=== PATIENT | male | born 1960 | race African-American/Black ===

== ENCOUNTER 2024-01-01 13:04 | Outpatient (AMB) | payer MEDICAID, SELFPAY ==
--- NOTE | 2024-01-01 13:05 | MHC.OFFVIS ---
Vital Signs 01/01/24 13:13 Height 5 ft 11.5 in Weight 185 lb 10.067 oz BMI 25.5 BP 138/92 H Blood Pressure Location Rt brachial Position Sitting Pulse 54 Pulse Source Pulse Oximeter Pulse Oximetry (%) 96 Oxygen Delivery Method Room Air Intake Visit Reasons: PSA Intake Note: New patient, referred by Roxana Inman NP from [facility]. Referred for PsA. c/o recurrent rolanda leg cramps making it difficult to sleep, rolanda leg pain from the knee radiating down to the feet x 6-8 months Currently on Skyrizi. Sees [facility]. Assistant Account Manager Required: No Accompanied by: Self / Same As Patient Allergies hydrochlorothiazide [HYDROCHLOROTHIAZIDE] Allergy (Unknown, Unverified 05/31/20 15:43) UNKNOWN HPI Comments Details: Mr. Brock 63-year-old male presents for evaluation of swelling to lower extremity. The patient is currently be treated by Derm for psoriasis on Skyrizi. --swelling started 4 months ago --on Skyrizi about 4 to 6 months, was doing topicals before. PsO started 3 years ago. No family hx --had mild ankle pain before - thinks normal wear and tear from jogging and karate. --lidocaine patch applied to ankle and peeled off skin because he left it on overnight --walk causes pain in ankles and top of ankles --flat feet with collapsed arch and bony prominence to medial aspect of feet, --no history of gout --denies swelling, pain and warmth to other joints --denies diarrhea, blood in urine or stool --denies uveiitis --Stopped Spironalactone about 2 week ago [facility] Medical History (Updated 01/28/24 @ 23:12 by JAVIER Kessler-GUERRERO) Psoriasis Bilateral ankle joint pain Bilateral foot pain Swelling of both lower extremities Surgical History (Updated 01/01/24 @ 13:18 by KARIS Gottlieb) H/O hand surgery H/O rotator cuff surgery Social History (Updated 01/01/24 @ 13:37 by KARIS Gottlieb) Alcohol intake: former Patient Tobacco Use Status: Current everyday Tobacco user Tobacco use type: Cigarette Cigarettes Per Day: 10 Substance Use Type: Heroin Current occupational status: unemployed Review of Systems Const All systems reviewed & are unremarkable except as noted in HPI and below Physical Exam Vital Signs: Last Vital Signs Pulse 54 01/01/24 13:13 BP 138/92 H 01/01/24 13:13 Pulse Ox 96 01/01/24 13:13 Oxygen Delivery Method Room Air 01/01/24 13:13 BMI result Body Mass Index 25.5 APPEARANCE: Patient in no acute distress EYES no redness, normal EARS:? External ear normal. NOSE/SINUS:? Airflow through both nares, no nasal discharge, no bleeding THROAT:? Oral mucosa moist, no ulcerations NECK:? No thyromegaly or masses, no adenopathy, trachea midline. HEART:? Regular rhythm, S1-S2 heard, no murmurs, rubs or gallops. LUNG:? Clear to percussion and auscultation EXTREMITIES:? No edema, no calf tenderness, normal peripheral pulses. NEURO:? Oriented and alert x3.? No focal weakness.? Reflexes symmetric.? Gait normal. SKIN:? There are no skin lesions evident. No objective signs of Raynaud's phenomenon. JOINT EXAM: Cervical Spine:.? Full range of motion without pain; no tenderness. Thoracic Spine:.? No scoliosis.? No tenderness on palpation. Lumbar Spine:.? Alignment normal.? Full range of motion without pain, no tenderness. Chest Wall:.? No tenderness, swelling, increased warmth or erythema. Hands:.? Normal pain-free range of motion without tenderness, swelling, increased warmth or erythema. Able to make a full fist and has a good general surgeon strength. Wrists:.? Normal pain-free range of motion without tenderness, swelling, increased warmth or erythema. Elbows:. Normal pain-free range of motion without tenderness, swelling, increased warmth or erythema. Shoulders:.?? Full range of motion without pain. No tenderness, weakness, swelling, increased warmth or erythema. Hips:.? Full range of motion without pain. Hip bursa:.? No tenderness. Knees:.?? Normal pain-free range of motion without tenderness, swelling, increased warmth or erythema.? There is no effusion or crepitation Ankles:.? Normal range of motion with tenderness, mild swelling, but no increased warmth or erythema. Feet:.? Normal pain-free range of motion without tenderness, swelling, increased warmth or erythema. Tender points:? No tenderness to digital palpation at the occiput, trapezius, second rib, lateral epicondyle, knees, greater trochanter and gluteal area bilaterally. ? Assessment & Plan Assessment & Plan (1) Bilateral foot pain: Code(s): M79.671 - Pain in right foot; M79.672 - Pain in left foot Category: Medical (2) Bilateral ankle joint pain: Code(s): M25.571 - Pain in right ankle and joints of right foot; M25.572 - Pain in left ankle and joints of left foot Category: Medical (3) Psoriasis: Code(s): L40.9 - Psoriasis, unspecified Category: Medical Plan Patient on skirizi for PsO having joint pains to the ankle desiring to know if this is the onset of PsA. I do no think this is PsA. His ankle and foot pain is primarily from mechanical changes, pes planus collapsed arch and ankle pronation. The patient would benefit from Supportive shoes for ankle and arches. The patient denies swelling and pain other joints. I will obtain imaging to assess the ankle for the degree of OA and any signs of inflammatory arthritis changes such as erosions. I also discussed with patient that Skyrizi now has indication for PsA so if the ankle symptoms were secondary to PsA then that implies skyrizi would not be adequate. And as such any medication that would be given for the ankles would be limited to MTX, LEF and other non-bio DMARDS or change Skyrizi. The patient is satisfied with skyrizi being therapeutic for his PsO. I will obtain Rheum labs for further evaluation of systemic inflammation I spent 35 minutes reviewing history, evaluating patient and documenting Orders: Orders ELGIN Reflex Titer and Pattern 01/01/24 - Other specified soft tissue disorders ANCA Vasculitides 01/01/24 - Other specified soft tissue disorders Anti-Centromere B Antibodies 01/01/24 - Other specified soft tissue disorders Anti DNA DS Antibody 01/01/24 - Other specified soft tissue disorders Comprehensive Met. Panel 01/01/24 - Other specified soft tissue disorders C Reactive Protein 01/01/24 - Other specified soft tissue disorders Creatine Kinase Total 01/01/24 - Other specified soft tissue disorders Immunofixation Pnl, Serum 01/01/24. - Other specified soft tissue disorders Immunoglobulins,IgG IgA IgM 01/01/24. - Other specified soft tissue disorders Protein Electrophoresis, Serum 01/01/24. - Other specified soft tissue disorders Sjogren's Antibodies 01/01/24. - Other specified soft tissue disorders UA w Microscopic 01/01/24. - Other specified soft tissue disorders XR foot LT min 3V 01/01/24 M79.671 - Pain in right foot, M79.672 - Pain in left foot, M25.571 - Pain in right ankle and joints of right foot, M25.572 - Pain in left ankle and joints of left foot XR foot RT min 3V 01/01/24 M79.671 - Pain in right foot, M79.672 - Pain in left foot, M25.571 - Pain in right ankle and joints of right foot, M25.572 - Pain in left ankle and joints of left foot Erythrocyte Sedimentation Rate 01/01/2479. - Other specified soft tissue disorders Anti Extractable Nuclear Ag 01/01/24. - Other specified soft tissue disorders Complement C3 01/01/24. - Other specified soft tissue disorders Complement C4 01/01/24. - Other specified soft tissue disorders Complete Blood Count Auto Diff 01/01/24 - Other specified soft tissue disorders Scleroderma 70 Antibody 01/01/24. - Other specified soft tissue disorders Uric Acid 01/01/24. - Other specified soft tissue disorders Aldolase 01/01/24. - Other specified soft tissue disorders Coding Level of Care Code New Pt Level 4 (61323) Diagnoses Bilateral foot pain M79.671; M79.672 Bilateral ankle joint pain M25.571; M25.572 Psoriasis L40.9
[2024-01-01 13:13] VITALS: BP 138/92; PULSE 54; O2SAT 96; BMI 25.5
== END 2024-01-01 14:00 | disposition home or self-care (01) ==
PROVIDERS: Visit Provider Nurse Practitioner Family
DX: M79.671 Pain in right foot (principal); M79.672 Pain in left foot; M25.571 Pain in right ankle and joints of right foot; M25.572 Pain in left ankle and joints of left foot; L40.9 Psoriasis, unspecified
CPT/HCPCS: 99204

== ENCOUNTER → 2024-01-01 13:04 | Outpatient (BNVA) | payer MEDICAID, SELFPAY | PROVIDERS: Visit Provider Nurse Practitioner Family | DX: M79.671 Pain in right foot (principal); M79.672 Pain in left foot; M25.571 Pain in right ankle and joints of right foot; M25.572 Pain in left ankle and joints of left foot; L40.9 Psoriasis, unspecified | CPT/HCPCS: 99212 ==

== ENCOUNTER 2024-08-27 17:52 | Emergency (ER) | payer OTHER, SELFPAY ==
[2024-08-27 18:00] VITALS: BP 177/61; BP 190/80; PULSE 59; PULSE 80; RESP 18; TEMP 36.6; O2SAT 97; O2SAT 98; BMI 25.8
[2024-08-27 18:02] VITALS: RESP 16
--- NOTE | 2024-08-27 18:04 | PC.NURSE ---
Randell comes in today reporting suicidal ideation with a plan to jump off bridge. he reports that he has been having increasing life stressors and he has been without his seroquel for some time. He reports that he has minimal psychiatric history. Patient is calm and cooperative, help seeking, offers no complaints to this RN. Patient aware of plan of care for medical clearance and CARE team eval Of note: patient [facility] meth[facility] at [facility] in [place], this RN attempted to verify dosage, after hours line answered but were unable to verify dosage. They advised this RN to call back on Thursday during business hours
--- NOTE | 2024-08-27 18:18 | PC.NURSE ---
RE; med rec this RN verified medications via medical record and patient recall
--- NOTE | 2024-08-27 18:25 | PC.NURSE ---
lead man over all dies in pattern shop completed by Will, Security. Security searched patient's head covering and told patient that it was okay for him to keep it. Patient reports that he is Rastafari and wears it for pentecostal reasons. Clinical Coordinator Anel aware as well
[2024-08-27 18:48] LABS: MANUAL DIFF FLAG NO
--- NOTE | 2024-08-27 19:22 | ED_ITS ---
HPI - Psych General Chief Complaint: Psychiatric Symptoms Stated Complaint: si w/ plan Time Seen by Provider: 08/27/24 19:15 Source: patient Mode of arrival: ambulatory Limitations: no limitations History of Present Illness ED Provider: DR. Garibay HPI Narrative: 64-year-old male homeless ana came in for evaluation of depression with SI with a plan of jumping of a bridge, never attempted suicide in the past, never required mental health hospitalization. Patient otherwise has no other symptoms. Related Data Home Medications ?Medication ?Instructions ?Recorded ?Confirmed amlodipine 10 mg-olmesartan 40 mg 1 tab PO DAILY 01/01/24 08/27/24 tablet carvedilol 3.125 mg tablet 3.125 mg PO BID 01/01/24 08/27/24 ferrous sulfate 325 mg (65 mg 325 mg PO DAILY 08/27/24 08/27/24 iron) tablet (FeroSul) gabapentin 400 mg capsule 400 mg PO TID 08/27/24 08/27/24 nicotine (polacrilex) 4 mg gum 4 mg PO Q2H 08/27/24 08/27/24 spironolactone 25 mg tablet 25 mg PO DAILY 08/27/24 08/27/24 Allergies Allergy/AdvReac Type Severity Reaction Status Date / Time hydrochlorothiazide Allergy Unknown UNKNOWN Verified 08/27/24 18:02 [HYDROCHLOROTHIAZIDE] Review of Systems 2 Review of Systems: All other systems are reviewed and are negative Constitutional: Reports as per HPI and Reports no additional constitutional complaints Eyes: Reports as per HPI and Reports no additional eye complaints Reports system reviewed and no additional complaints, except as documented Cardiovascular: Reports as per HPI and Reports no additional cardiovascular complaints Respiratory: Reports as per HPI and Reports no additional respiratory complaints Gastrointestinal: Reports as per HPI and Reports no additional gastrointestinal complaints Genitourinary: Reports no additional female genitourinary complaints Musculoskeletal: Reports no additional musculoskeletal complaints Skin/Breast: Reports system reviewed and no additional complaints, except as docu Psychiatric: Reports no additional psychiatric complaints Endocrine: Reports no additional endocrine complaints Hematologic/Lymphatic: Reports no additional hematologic/lymphatic complaints Allergic/Immunologic: Reports no additional allergic/immunologic complaints Reports system reviewed and no additional complaints, except as documented and Reports Abnormal speech present [facility] Past Medical History Medical History Psoriasis Bilateral ankle joint pain Bilateral foot pain Swelling of both lower extremities Surgical History H/O hand surgery H/O rotator cuff surgery Social History Social History Alcohol intake: current Alcohol intake frequency: does not drink Patient Tobacco Use Status: Current everyday Tobacco user Tobacco use type: Cigarette Cigarettes Per Day: 10 Smoked in Last 30 Days: Yes Use of substances other than those prescribed or required for medical reasons: No Substance Use Type: Heroin Advance Directives: No Advance Directives Information Provided: No Current occupational status: unemployed Physical Exam 2 Vital Signs: Vital Signs: Last Vital Signs Temp 97.8 F 08/27/24 18:00 Pulse 59 08/27/24 18:00 Resp 16 08/27/24 18:02 BP 177/61 H 08/27/24 18:00 Pulse Ox 97 08/27/24 18:00 O2 Del Method Room Air 08/27/24 18:00 BMI result Body Mass Index 25.8 Vital signs have been reviewed and appear to be correct. Blood pressure elevated. Heart rate normal. Respiratory rate normal. Temperature normal. Oxygen saturation normal. Appearance: Alert. Oriented X3. No acute distress. Head: Normal external exam. Normocephalic. Atraumatic. No Griffith signs noted. No raccoon eyes noted Eyes: PERRLA. EOMI. Conjunctiva and sclera normal. Eyelids normal. ENT: TM's Normal. Pharynx normal. Uvula midline. Moist mucous membranes. No trismus noted. No drooling noted. No muffled voice noted. Neck: Normal inspection. Neck supple. FROM. No adenopathy. Thyroid Normal. No meningeal signs. No neck mass noted. CVS: Normal heart rate and rhythm. Heart sound normal. No murmurs noted. Pulses normal throughout. Respiratory: No respiratory distress. Painless inspiration. Breath sounds normal. No wheezes/rales/rhonchi noted. Chest nontender. No accessory muscle usage noted or decreased air movement noted. Abdomen: Soft and nontender. Bowel sounds normal in all 4 quadrants. No distention noted. No organomegaly noted. No visible injury noted. Back: No CVA tenderness. Full range of motion noted. Skin: Skin warm and dry. Normal skin color. Normal skin turgor. No rashes/lesions/lacerations noted. Extremities: No lower extremity edema. Extremities exhibit normal range of motion. Extremities nontender. Neuro: Oriented X 3. Cranial nerve exam: II-XII are grossly intact No motor deficit. No sensory deficit. Reflexes normal. Patient Orientation: Person, Place, Time and Situation, okay hygiene and grooming. Fair eye contact, attentive, no tics or tremors. Level of Consciousness: Awake, Appropriate and Alert Patient Behavior: Appropriate, Guarded, Cooperative and Anxious Mood Description: Constricted, Blunted and Apprehensive Affect Description: Constricted, Blunted and Apprehensive Patient Cognition Impaired: No Ability to Follow Directions: Excellent Speech Pattern: Clear, Appropriate and Spontaneous Speech, nonpressured, spontaneous with regular rate and rhythm, normal volume and prosody. No dysarthria. Memory Description: Intact, Immediate Intact and Short Term Intact Hallucinations: None Delusions: Not Present Thought Process: Intact Thought Content: denies Homicidal Ideation, + SI Depressive Symptoms: Not present. Judgement and Insight: Limited but adequate. Course Reevaluation(s) Reevaluation #1: a 64-year-old male came in for depression and SI, patient is medically cleared will start physician observation and obtain care team evaluation. Time: 21:00 Medical Decision Making Differential Diagnosis Differential Diagnoses: The differential diagnosis associated with the presentation includes ( Depression, SI, HI, hallucination, electrolyte derangement, severe anemia, medical clearance.) Admission/Observation Consideration of admission/observation: Escalation of care including admission/observation considered Lab Data MDM Lab Attestation statement: I reviewed the patient's lab results. 08/27/24 18:43 08/27/24 18:43 Labs: Lab Results 08/27/24 Range/Units 18:43 WBC 3.0 L (4.8-10.8) X10*3/uL RBC 3.82 L (4.60-5.80) X10*6/uL Hgb 10.6 L (14.0-18.0) g/dl Hct 32.1 L (42.0-52.0) % MCV 84.0 (80.0-98.0) fL MCH 27.7 (27.0-33.0) pg MCHC 33.0 (31.0-36.0) g/dl RDW 15.4 (11.0-16.0) % Plt Count 143 L (160-400) X10*3/uL MPV 9.6 (9.4-12.4) fL Immature Gran % (Auto) 0.3 (0.0-0.4) % Neut % (Auto) 37.3 L (45-73) % Lymph % (Auto) 41.2 H (20-40) % [place] % (Auto) 11.1 H (2-11) % Eos % (Auto) 9.1 H (0-4) % Baso % (Auto) 1.0 (0-2) % Lymph # (Auto) 1.2 (1.2-4.9) X10*3/uL [place] # (Auto) 0.3 (0.1-1.2) X10*3/uL Eos # (Auto) 0.3 (0.0-0.4) X10*3/uL Baso # (Auto) 0.0 (0.0-0.2) X10*3/uL Abs Immat Gran (auto) 0.01 (0.00-0.03) X10*3/uL Absolute Neuts (auto) 1.1 L (2.0-8.3) x10*3/uL Absolute Nucleated RBC 0.000 (0.0-0.012) X10*3/uL Nucleated RBC % (auto) 0.0 (0.0-0.2) /100WBC Sodium 141 (135-145) mmol/L Potassium 4.9 (3.3-5.1) mmol/L Chloride 108 (96-108) mmol/L Carbon Dioxide 26 (22-29) mmol/L Anion Gap 12 (12-20) BUN 36 H (9-16) mg/dL Creatinine 1.97 H (0.5-1.4) mg/dL Estim Creat Clear Calc 39.8 Estimated GFR 34 Random Glucose 96 (60-115) mg/dL Calcium 9.6 (8.4-10.2) mg/dL Total Bilirubin 0.4 (0.0-1.0) mg/dL AST 42 H (5-37) U/L ALT 25 (0-40) U/L Alkaline Phosphatase 88 (39-117) U/L Total Protein 8.4 H (6.5-8.0) g/dL Albumin 3.7 (3.5-5.0) g/dL Ethyl Alcohol < 10 mg/dL Discharge Plan Discharge Clinical Impression: Depression, Suicidal ideation Patient Disposition: Still a Patient Prescriptions: No Action gabapentin 400 mg capsule 400 mg PO TID spironolactone 25 mg tablet 25 mg PO DAILY nicotine (polacrilex) 4 mg gum 4 mg PO Q2H ferrous sulfate [FeroSul] 325 mg (65 mg iron) tablet 325 mg PO DAILY amlodipine-olmesartan 10-40 mg tablet 1 tab PO DAILY carvedilol 3.125 mg tablet 3.125 mg PO BID Interventions: [place]-Suicide Risk Severity Scale Last Done: 08/27/24 18:03 Print Language: Nepali
[2024-08-27 19:24] LABS: Eosinophils Absolute Auto 0.3 X10*3/uL (0.0-0.4); Eosinophils Percent Auto 9.1 % (0-4); Hematocrit 32.1 % (42.0-52.0); Hemoglobin 10.6 g/dl (14.0-18.0); Imm Gran Abs Auto 0.01 X10*3/uL (0.00-0.03); Imm Gran Pct Auto 0.3 % (0.0-0.4); Lymphocytes Absolute Auto 1.2 X10*3/uL (1.2-4.9); Lymphocytes Percent Auto 41.2 % (20-40); Mean Corpuscular Hemoglobin 27.7 pg (27.0-33.0); Mean Platelet Volume 9.6 fL (9.4-12.4); Monocytes Absolute Auto 0.3 X10*3/uL (0.1-1.2); Monocytes Percent Auto 11.1 % (2-11); Neutrophils Absolute Auto 1.1 x10*3/uL (2.0-8.3); Neutrophils Percent Auto 37.3 % (45-73); Platelet Count 143 X10*3/uL (160-400); Red Blood Count 3.82 X10*6/uL (4.60-5.80); Red Cell Distribution Width 15.4 % (11.0-16.0)
[2024-08-27 19:25] LABS: Alanine Aminotransferase 25 U/L (0-40); Albumin Level 3.7 g/dL (3.5-5.0); Alkaline Phosphatase 88 U/L (39-117); Anion Gap 12 (12-20); Aspartate Amino Transferase 42 U/L (5-37); Bilirubin Total 0.4 mg/dL (0.0-1.0); Blood Urea Nitrogen 36 mg/dL (9-16); Calcium 9.6 mg/dL (8.4-10.2); Carbon Dioxide 26 mmol/L (22-29); Chloride 108 mmol/L (96-108); Creatinine Clr Calc Pharmacy 39.8; Estimated Glomerular Filt Rate 34; Ethanol < 10 mg/dL; Glucose Random 96 mg/dL (60-115); Potassium 4.9 mmol/L (3.3-5.1); Sodium 141 mmol/L (135-145); Total Protein 8.4 g/dL (6.5-8.0)
--- NOTE | 2024-08-27 19:47 | MHC.CARE ---
Attempted to contact for collateral information: Thelma Delmy (Sister; [phone]) and Acacia Brock (Parent; [phone]) however both numbers are not in-service.
--- NOTE | 2024-08-27 20:00 | PC.NURSE ---
Addendum entered by Verna Pham 08/28/24 00:07: PT HR 50, notified provider as carvedilol due. Provider ordered TW to administer as scheduled but to monitor. Original Note: PT
--- NOTE | 2024-08-27 20:12 | MHC.CARE ---
CARE team attempted to evaluate Pt, however repeatedly expressed, I'm too tired to talk to you right now.
[2024-08-27 21:58] VITALS: BP 187/82; PULSE 50; RESP 16; TEMP 36.3; O2SAT 98
[2024-08-27 22:31] VITALS: BP 187/82; PULSE 50
[2024-08-27] MEDS: Gabapentin 400 MG CAPSULE PO (22:31)
[2024-08-27] MEDS: carvediloL 3.125 MG TABLET PO (22:31)
[2024-08-28 00:13] VITALS: PULSE 58; RESP 16; O2SAT 98
[2024-08-28 00:53] LABS: Appearance Urine Clear; Color Urine Yellow; Glucose Urine UA Negative (Negative); Leukocyte Esterase Urine Negative (Negative); Nitrite Urine Negative (Negative); PH 5.5 (5.0-9.0); Specific Gravity - Urine 1.015 (1.005-1.025); UMIC TRIGGER UACC YES; Urine Blood Small (1+) (Negative); Urine Ketones Negative (Negative); Urine Protein 30 (1+) mg/dL (Neg-Trace)
[2024-08-28 00:57] LABS: Amphetamine Screen Urine Not Detected (Not Detect); Barbiturates, Urine Not Detected (Not Detect); Benzodiazepines Screen Urine Not Detected (Not Detect); Buprenorphine Scr Not Detected (Not Detect); Cannabinoid Screen Urine Not Detected (Not Detect); Cocaine Screen Urine POSITIVE (Not Detect); Fentanyl, urine POSITIVE (Not Detect); Methadone Screen, Urine Positive (Not Detect); Opiate Screen Urine POSITIVE (Not Detect); Oxycodone Screen Urine Not Detected (Not Detect); Phencyclidine Screen Urine Not Detected (Not Detect)
[2024-08-28 01:06] LABS: Bacteria Urine None Seen (None Seen); Hyaline Casts Urine 0-2 /LPF (0-2); RBC Urine 0-2 /HPF (0-2); Squamous Epithelial Cell Urine 0-2 /HPF (0-2); WBC Urine 0-5 /HPF (0-5)
--- NOTE | 2024-08-28 07:29 | PC.NURSE ---
Assumed care of patient at 0645, patient appears to be in no apparent distress this am, sleeping, respirations even and unlabored. Continue plan of care for CARE team eval today
[2024-08-28 07:30] VITALS: BP 171/60; PULSE 56; RESP 16; TEMP 36.4; O2SAT 97
[2024-08-28 08:18] VITALS: BP 171/60
[2024-08-28] MEDS: Ferrous Sulfate 324 MG TABLET.DR PO (08:18)
[2024-08-28] MEDS: carvediloL 3.125 MG TABLET PO (08:18)
[2024-08-28] MEDS: Spironolactone 25 MG TABLET PO (08:18)
[2024-08-28] MEDS: Gabapentin 400 MG CAPSULE PO (08:19)
[2024-08-28] MEDS: Nicotine Polacrilex 2 MG GUM 4 MG BUCCAL (08:19)
[2024-08-28 08:47] VITALS: BP 171/60
[2024-08-28] MEDS: AMLODIPINE BESYLATE 10 MG PO (08:47)
[2024-08-28] MEDS: VALSARTAN 160 MG PO (08:47)
--- NOTE | 2024-08-28 09:11 | MHC.CARE ---
Pt was seen [facility] crisis in the community and inpatient level of care. CARE team to take case over and re-see patient for assessment and new disposition as no bed could be secured.
--- NOTE | 2024-08-28 10:00 | MHC.RECOVRN ---
Met with Randell in [facility] after a recovery referral was made by crisis team. Pt reported that he presented to the ED secondary to homelessness and feeling hopeless due to this. Initially he had reported that he felt suicidal but upon further conversation pt admitted that he feels safe and just needs help with his ongoing substance use disorder. Recent stressors include one of five siblings passing last week, and ongoing homelessness during harsh winter conditions. He is currently unemployed with limited support. He reports being on 40 mg of methadone ([facility] in [place]). He reports using fentanyl (1bundle per day = 10 bags daily) as well which appears to be laced with cocaine as well - pt was surprised to hear that his utox came positive for cocaine as well. He reports feeling safe here and wanting help with his TANO. He reports a history of ATS admissions including at [facility] and at [facility] in [place], as well as at facility in [place] (he cannot recall facility name). Per pt's request ATS referrals to be to various facilities for review.
--- NOTE | 2024-08-28 10:22 | MHC.RECOVRN ---
Referrals sent to [facility], [facility], and [facility].
--- NOTE | 2024-08-28 10:45 | MHC.RECOVRN ---
Referrals have been made to the following facilities: [facility], [facility], [facility], [facility], [facility], and [facility]. Waiting to hear back & will follow up with phone call shortly.
--- NOTE | 2024-08-28 11:25 | PHA.MEDREC ---
Pharmacy Consult ? Medication Reconciliation Pharmacy has completed the medication reconciliation. Spoke with pt to confirm meds. Per patient, has quetiapine 50 mg PM at home, just hasn't taken in a week.
--- NOTE | 2024-08-28 11:33 | MHC.RECOVRN ---
Pt has been accepted at [facility] for ATS. He is expected there @ 2pm and will be going via [employer].
[2024-08-28 12:52] VITALS: BP 152/68; PULSE 67; RESP 14; TEMP 36.6; O2SAT 99
== END 2024-08-28 12:54 | disposition other institution (70) ==
PROVIDERS: Emergency Provider Emergency Medicine
DX: F32.A Depression, unspecified (principal); R45.851 Suicidal ideations; F17.210 Nicotine dependence, cigarettes, uncomplicated; Z79.899 Other long term (current) drug therapy
CPT/HCPCS: 36415; 80053; 80307; 81001; 85025; 99285; S9485